=== PATIENT | male | born 1950 | race Caucasian/White ===

== ENCOUNTER 2017-11-02 07:39 | Outpatient (CLI) | payer OTHER | END 2017-11-02 15:19 | disposition home or self-care (01) | LOC: LAB 07:39 | DX: E11.65 Type 2 diabetes mellitus with hyperglycemia (principal); D64.9 Anemia, unspecified; N40.0 Benign prostatic hyperplasia without lower urinary tract symptoms; E03.9 Hypothyroidism, unspecified; C61 Malignant neoplasm of prostate; Z85.46 Personal history of malignant neoplasm of prostate ==

== ENCOUNTER 2022-09-14 06:54 | Outpatient (CLI) | payer OTHER | END 2022-09-14 07:15 | disposition home or self-care (01) | LOC: TOM 06:54 | PROVIDERS: ATTEND Specialist | DX: K57.33 Diverticulitis of large intestine without perforation or abscess with bleeding (principal); K75.81 Nonalcoholic steatohepatitis (NASH); N19 Unspecified kidney failure ==

== ENCOUNTER 2022-09-19 12:49 | Outpatient (CLI) | payer OTHER | END 2022-09-19 12:50 | disposition home or self-care (01) | LOC: LAB 12:49 | PROVIDERS: ATTEND Specialist | DX: D64.9 Anemia, unspecified (principal); E11.21 Type 2 diabetes mellitus with diabetic nephropathy; K57.81 Diverticulitis of intestine, part unspecified, with perforation and abscess with bleeding ==

== ENCOUNTER 2023-06-13 12:37 | Outpatient (CLI) | payer OTHER ==
[2023-06-13 14:56] LABS: FOLIC ACID > 20.00 ng/ml (4.78-20)
== END 2023-06-13 12:43 | disposition home or self-care (01) ==
LOC: LAB 12:37
PROVIDERS: ATTEND Specialist
DX: D51.0 Vitamin B12 deficiency anemia due to intrinsic factor deficiency (principal)